=== PATIENT | male | born 1935 | race Two or more races ===

== ENCOUNTER 2022-01-04 15:17 | Emergency (ER) | payer MEDICARE, BC ==
[~2022-01-04] VITALS: Ht 175.3 cm; Wt 90.7 kg
--- NOTE | 2022-01-04 15:30 | NUR ---
BIBS C/O WORSENING HEADACHE 02/03 X 2 WEEKS. DENIES NAUSEA/VOMITING. THE PATIENT IS ALERT AND ORIENTED X4. ATTACHED THE PATIENT TO THE MONITOR. WILL CONTINUE TO MONITOR THE PATIENT.
[2022-01-04] MEDS ORDERED: METOCLOPRAMIDE HCL 10 MG/2 ML VIAL IV ONE (16:00)
[2022-01-04] MEDS ORDERED: SUMATRIPTAN SUCCINATE 6 MG/0.5 ML VIAL SQ ONE (16:00)
[2022-01-04] MEDS ORDERED: IV NS 0.9% 1,000 ML BAG IV ONE (16:00)
[2022-01-04] MEDS ORDERED: PROCHLORPERAZINE EDISYLATE 10 MG/2 ML VIAL IVP ONE (16:00)
[2022-01-04] MEDS ORDERED: LOPERAMIDE HCL (2 MG CAP) 2 MG CAPSULE ONE (16:27)
[2022-01-04] MEDS ORDERED: PROCHLORPERAZINE EDISYLATE 10 MG/2 ML VIAL ONE (16:27)
[2022-01-04] MEDS ORDERED: METOCLOPRAMIDE HCL 10 MG/2 ML VIAL ONE (16:27)
[2022-01-04] MEDS ORDERED: BUTA1CAP46 PO (17:00)
[2022-01-04] MEDS ORDERED: HYDR-4209 PO (17:00)
[2022-01-04] MEDS ORDERED: META800T85 PO (17:00)
[2022-01-04 17:06] VITALS: BP 142/89
--- NOTE | 2022-01-04 17:06 | NUR ---
Patient discharged to home in stable condition. Written and verbal after care instructions given. Patient verbalizes understanding of instruction.
== END 2022-01-04 17:07 | disposition home or self-care (01) ==
LOC: ER 15:31
DX: R51.9 Headache, unspecified (principal); I10 Essential (primary) hypertension; Z79.899 Other long term (current) drug therapy
CPT/HCPCS: 70450-TC; 72125-TC; J0780; J2765; J7030